=== PATIENT | male | born 1975 | race Two or more races ===

== ENCOUNTER 2017-12-14 10:00 | Day surgery (SDC) | payer OTHER ==
[~2017-12-14] VITALS: Ht 177.8 cm; Wt 95.7 kg
[~2017-12-14 10:00] MED LIST: CIPRO500 MG; FLAGYL375 MG
== END 2017-12-14 15:00 | disposition home or self-care (01) ==
LOC: CIR.AMB 10:00 → EDSTATUS 13:00 → CIR.AMB 15:00 → SEC-K 15:55 → SURH 15:55 → SEC-K 18:29 → O/R 18:29
DX: K61.2 Anorectal abscess (principal)